=== PATIENT | female | born 1995 | race Caucasian/White ===

== ENCOUNTER 2016-04-11 14:59 | Emergency (ER) | payer OTHER ==
--- NOTE | 2016-04-11 18:01 | DIAGNOSTIC IMAGING REPORT ---
PROCEDURE: US OB 1ST TRIMESTER W/TRANSVAG INDICATION: Abnormal bleeding. HCG level 449. TECHNIQUE: Henderson scale, color, and spectral Doppler transabdominal and endovaginal sonographic images of the first trimester gravid uterus were obtained. COMPARISON: None. FINDINGS: TRANSABDOMINAL SCANS: The uterus appears normal. Kidneys are normal. TRANSVAGINAL SCANS: There is moderate increased endometrial thickness (17 mm). There is no evidence of intrauterine gestational sac. Right ovary is of normal size (3.5 cm) with a 1.3 cm cyst containing proteinaceous material. Left ovary is normal (3.9 cm). No evidence of free fluid. IMPRESSION: 1. Moderate increase endometrial thickness (17 mm). 2. In view of the patient's elevated hCG level, the overall appearance is most compatible with miscarriage in progress. An early undeveloped intrauterine is less likely, although still a consideration. Ectopic is less likely. Correlation with hCG levels and/or repeat obstetrical ultrasound in 7-10 days may be of assistance. 3. Findings discussed with PAC. Evonne
--- NOTE | 2016-04-11 18:05 | ED CLINICAL REPORT ---
Clinical Report - Physicians/Mid Levels [facility] [address] [place] [address] 04/11/2016 15:00 Patient: NATHANIEL HILTON Time Seen: 16:24 Apr 11 2016. Arrived- By private vehicle. Historian- patient. HISTORY OF PRESENT ILLNESS Chief Complaint: PELVIC PAIN. 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 The symptoms are described as mild. No vaginal pain, low back pain, pain with urination or urinary frequency. (, Last period January 29, reports spotting very away over the last 5 days, however heavier spotting over the last 36 hours, with blood clots. Reports abdominal cramping associated with spotting. Denies fevers. Denies any back pain.). REVIEW OF SYSTEMS No vomiting, diarrhea, chest pain or enlarged lymph nodes. All systems otherwise negative, except as recorded above. PAST HISTORY Problems: OB History. Allergic Reaction. . UTI - Urinary Tract Infection. Vomiting. Gastritis. Anxiety Reaction. Headache. Immunizations. LNMP - Last Normal Menstrual Period. Additional Surgeries: no known surgeries. Medications: None. Allergies: Amoxicillin. Augmentin. SOCIAL HISTORY Never smoker. No alcohol use or drug use. ADDITIONAL NOTES The nursing notes have been reviewed. PHYSICAL EXAM Vital Signs: 04/11/2016 16:14 BP: 123/73. HR: 93. RR: 16. O2 saturation: 100%. Temp: 98.0 F. Appearance: Alert. HEENT: Normal external inspection. ENT: Pharynx normal. Neck: Neck supple. CVS: Heart sounds normal. Respiratory: No respiratory distress. Breath sounds normal. Chest nontender. No rales or wheezes. Abdomen: Soft and nontender. Bowel sounds normal. No abdominal tenderness or rebound tenderness. : Speculum and bimanual exam performed. External inspection normal. Speculum exam normal. Moderate vaginal bleeding with clots, via the cervical os. No cervical dilation. Bimanual exam normal. No tenderness present on bimanual exam. Skin: Skin warm. Normal skin color. LABS, X-RAYS, AND EKG Pelvic Sonogram: IMPRESSION: 1. Moderate increase endometrial thickness (17 mm). 2. In view of the patient's elevated hCG level, the overall appearance is most compatible with miscarriage in progress. An early undeveloped intrauterine is less likely, although still a consideration. Ectopic is less likely. Correlation with hCG levels and/or repeat obstetrical ultrasound in 7-10 days may be of assistance. 3. Findings discussed with ALETA Douglass. Electronically Final signed by:Brett Milton MD 04/11/2016 5:58:19 PM. Laboratory Tests: CBC w Diff: (LUNA: 04/11/2016 16:25) ( [facility] [place] 16:43) Final results Test Result Flag Units (Reference) WHITE BLOOD COUNT 12.4 H K/uL (4.5-11.5) RED BLOOD COUNT 5.23 H M/uL (4.00-5.20) HEMOGLOBIN 13.8 gm/dL (12.0-16.0) HEMATOCRIT 43.1 % (36.0-46.0) MEAN CELL VOLUME 82 fL (80-100) MEAN CORPUSCULAR HGB 26 pg (26-34) MEAN CORPUSCULAR HGB CONC 32 g/dL (31-37) RED CELL DISTRIBUTION WIDTH 13.8 % (11.6-14.8) PLATELET COUNT 321 K/uL (150-400) LYMPH % 17.1 L % (25-40) MONO % 4.0 % (3-14) GRANULOCYTE % 78.9 (53-90) CMP: (LUNA: 04/11/2016 16:25) ( MsgRcvd 04/11/2016 17:05) Final results Test Result Flag Units (Reference) GLUCOSE 91 mg/dL (70-110) BUN 13 mg/dL (7-18) CREATININE 0.7 mg/dL (0.6-1.3) Estimated GFR >60 mL/min Estimated GFR- >60 mL/min Note: Persistent reduction over 3 months in eGFR<60 mL/min/1.73 m2 defines CKD. Patients with eGFR values>=60 mL/min/1.73 m2 may also have CKD if evidence ofpersistent proteinuria. Additional information may be foundat www.kidney.org. SODIUM 140 mmol/L (136-145) POTASSIUM 3.9 mmol/L (3.5-5.1) CHLORIDE 106 mmol/L (98-107) CARBON DIOXIDE 26 mmol/L (21-32) CALCIUM 8.8 mg/dL (8.5-10.1) TOTAL PROTEIN 8.1 g/dL (6.4-8.2) ALBUMIN 4.2 g/dL (3.3-5.0) BILIRUBIN, TOTAL 1.3 H mg/dL (0.0-1.0) ALKALINE PHOSPHATASE 87 U/L (46-116) AST (SGOT) 11 L U/L (15-37) ALT (SGPT) 27 U/L (12-78) BETA HCG, QUANTITATIVE 449 mIU/mL REFERENCE RANGE:Adult Males: <2 mIU/mLNon- Females: <6 mIU/mL Females:Approximate Approximate hCGGestational Age Range (mIU/mL) 0-1 week 0-501-2 weeks 40-3002-3 weeks 100-39112-9 weeks 500-91054-0 months 5,000-200,0002-3 months 10,000-100,0002nd trimester 3,000-50,0003rd trimester 1,000-50,000 Type & Rh: (LUNA: 04/11/2016 16:25) ( MsgRcvd 04/11/2016 17:03) Final results Test Result Flag Units (Reference) PATIENT BLOOD TYPE A Positive . PROGRESS AND PROCEDURES Course of Care: pt with signs/ sx Most consistent with incomplete miscarriage. Patient with very low hCG, despite by dates should be around 8 weeks , and the hCG is expected to be higher, in addition ultrasound with no sign of on us. 04/11/2016 18:14 BP: 128/53. HR: 97. RR: 18. O2 saturation: 100%. Temp: 98.3 F. Pain level now: 05/10. Patient is stable. Physical exam findings are improved. Symptoms better. Patient/family counseled. Disposition: Discharged. CLINICAL IMPRESSION Incomplete spontaneous (miscarriage). Positive test in the emergency department. INSTRUCTIONS Rest. Drink plenty of fluids. (repeat HCG in 3-4 days okay hydrate plenty). Warnings: Further evaluation is necessary. Prescription Medications: Hydrocodone/APAP 5mg / 325mg: take 1 orally every 6 hours as needed for pain. Dispense twelve (12). No refill. Follow-up: Follow up with your doctor. (Electronically signed by Annamarie Mahan P.A.-C 04/11/2016 18:31)
--- NOTE | 2016-04-11 18:05 | ED NURSING NOTES ---
Clinical Report - Nurses [facility] [address] [place] [address] 04/11/2016 15:00 Patient: NATHANIEL HILTON TRIAGE Triage time 16:07. Acuity: LEVEL 3. Chief Complaint: SPOTTING and VAGINAL BLEEDING and ABDOMINAL CRAMPS, LOW BACK PAIN and PASSING TISSUE. 16:14 04/11/16. Alert. No acute distress. --16:14 Helga Ambriz R.N. 16:14 04/11/16. BP: 123/73. HR: 93. RR: 16. O2 saturation: 100%. Temp: 98.0 F. Pain level now 8/10. --16:14 Helga Ambriz R.N. Weight: 81.6 kg stated. Height/Length: 61 inches Per Patient. BMI: 34. --16:14 Helga Ambriz R.N. Medications None. --16:13 Helga Ambriz R.N. Medication/allergy information source: the patient. --16:14 Helga Ambriz R.N. Allergies Amoxicillin. Augmentin. --16:13 Helga Ambriz R.N. History Historian: patient. Primary physician (fernando). ( spotting x 5 days, states she began having heavier bleeding yesterday and passed clots and tissue yesterday. C/O cramping. Additionally, she is 5 months post ). Onset. (5 days ago). 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 PAST MEDICAL HX: Last normal menstrual period- feb 14. Currently . OB history: G 3; P 2. SOCIAL HX: Never smoker. No alcohol use or drug use. FALL RISK ASSESSMENT: Fall risk assessment completed. No fall risk identified. NUTRITIONAL RISK ASSESSMENT: The nutritional risk assessment revealed no deficiencies. FUNCTIONAL ASSESSMENT: Functional assessment: no impairments noted. LEARNING NEEDS ASSESSMENT: The learning needs assessment revealed no barriers. SKIN INTEGRITY ASSESSMENT: Skin integrity risk assessment completed. No skin integrity risk identified. --16:14 Helga Ambriz R.N. PROBLEMS: Allergic Reaction. UTI - Urinary Tract Infection. Vomiting. Gastritis. Anxiety Reaction. Headache. --16:14 Helga Ambriz R.N. ADDITIONAL SURGERIES: no known surgeries. Interventions ID band on patient. To treatment room. --16:14 Helga Ambriz R.N. PHYSICAL ASSESSMENT 16:18 04/11/16. GENERAL / NEURO / PSYCH: Alert. Oriented X 4. Appears in no acute distress. --16:18 Carolyn Aggarwal R.N. NURSING PROGRESS NOTES 16:18 04/11/16. Head of bed elevated. Patient identifiers checked. Call light placed in reach. Bed placed in lowest position. Patient ready for evaluation- chart flagged. --16:18 Carolyn Aggarwal R.N. DISPOSITION / DISCHARGE Departure time: 1813. Condition at departure: unchanged. No learning barriers present. Discharge instructions provided and reviewed with the patient and family. Reviewed medication(s) information. Prescription(s) given to the patient. Reviewed referral to family practice. Verbalized understanding. Written instructions provided. The patient was discharged home and accompanied by family. She left the Emergency Department ambulatory and via private vehicle. --18:16 Carolyn Aggarwal R.N. 18:14 04/11/16. BP: 128/53. HR: 97. RR: 18. O2 saturation: 100%. Temp: 98.3 F. Pain level now: 05/10. --18:16 Carolyn Aggarwal R.N. Locked/Released at 04/11/2016 19:14 by Carolyn Aggarwal R.N.
--- NOTE | 2016-04-11 18:05 | ED ORDER SUMMARY ---
..... Patient: NATHANIEL HILTON OrderSheet [facility] VisitID: [id number] [address] [place] [address] 20y, F Registration Date/Time: 04/11/2016 ORDER SHEET Weight: 81.6 kg (stated) Allergies: Amoxicillin, Augmentin GENERAL ORDERS: US OB 1st Trimester w Transvag (jan 29) Urgent (16:12 04/11/2016 EKoroleva P.A.-C) (Ack 16:15 TBergley) (19:13 LSullivan R.N.) CBC w Diff Urgent (16:12 04/11/2016 EKoroleva P.A.-C) (Ack 16:15 TBergley) (17:28 TBergley) CMP Urgent (16:12 04/11/2016 EKoroleva P.A.-C) (Ack 16:15 TBergley) (17:28 TBergley) Serum Quantitative Urgent (16:12 04/11/2016 EKoroleva P.A.-C) (Ack 16:15 TBergley) (17:28 TBergley) Type & Rh Urgent (16:12 04/11/2016 EKoroleva P.A.-C) (Ack 16:15 TBergley) (17:28 TBergley) Pelvic Exam Setup (16:35 04/11/2016 EKoroleva P.A.-C) (Ack 17:25 TBergley) (17:28 TBergley) Vitals (17:58 04/11/2016 EKoroleva P.A.-C) (Ack 18:30 TBergley) (19:13 LSullivan R.N.) MEDICATION ORDERS: Hydrocodone-APAP PO 5/325 mg (NOW, HIGH ALERT MEDICATION) (17:58 04/11/2016 EKoroleva P.A.-C) (Cancelled: Patient Left19:13 LSullivan R.N.) IV FLUIDS: ORDER SHEET NOTES: [Electronically signed by Annamarie Mahan PMauricioAMauricio-Gigi (18:31 04/11/2016)] [Electronically signed by Carolyn Aggarwal R.N. (19:14 04/11/2016)] [Electronically locked/signed by Carolyn Aggarwal R.N. (19:14 04/11/2016)]
--- NOTE | 2016-04-11 18:05 | ED NURSING NOTES ---
Clinical Report - Nurses [facility] [address] [place] [address] 04/11/2016 15:00 Patient: NATHANIEL HILTON TRIAGE Triage time 16:07. Acuity: LEVEL 3. Chief Complaint: SPOTTING and VAGINAL BLEEDING and ABDOMINAL CRAMPS, LOW BACK PAIN and PASSING TISSUE. 16:14 04/11/16. Alert. No acute distress. --16:14 Helga Ambriz R.N. 16:14 04/11/16. BP: 123/73. HR: 93. RR: 16. O2 saturation: 100%. Temp: 98.0 F. Pain level now 8/10. --16:14 Helga Ambriz R.N. Weight: 81.6 kg stated. Height/Length: 61 inches Per Patient. BMI: 34. --16:14 Helga Ambriz R.N. Medications None. --16:13 Helga Ambriz R.N. Medication/allergy information source: the patient. --16:14 Helga Ambriz R.N. Allergies Amoxicillin. Augmentin. --16:13 Helga Ambriz R.N. History Historian: patient. Primary physician (fernando). ( spotting x 5 days, states she began having heavier bleeding yesterday and passed clots and tissue yesterday. C/O cramping. Additionally, she is 5 months post ). Onset. (5 days ago). 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 PAST MEDICAL HX: Last normal menstrual period- feb 14. Currently . OB history: G 3; P 2. SOCIAL HX: Never smoker. No alcohol use or drug use. FALL RISK ASSESSMENT: Fall risk assessment completed. No fall risk identified. NUTRITIONAL RISK ASSESSMENT: The nutritional risk assessment revealed no deficiencies. FUNCTIONAL ASSESSMENT: Functional assessment: no impairments noted. LEARNING NEEDS ASSESSMENT: The learning needs assessment revealed no barriers. SKIN INTEGRITY ASSESSMENT: Skin integrity risk assessment completed. No skin integrity risk identified. --16:14 Helga Ambriz R.N. PROBLEMS: Allergic Reaction. UTI - Urinary Tract Infection. Vomiting. Gastritis. Anxiety Reaction. Headache. --16:14 Helga Ambriz R.N. ADDITIONAL SURGERIES: no known surgeries. Interventions ID band on patient. To treatment room. --16:14 Helga Ambriz R.N. PHYSICAL ASSESSMENT 16:18 04/11/16. GENERAL / NEURO / PSYCH: Alert. Oriented X 4. Appears in no acute distress. --16:18 Carolyn Aggarwal R.N. NURSING PROGRESS NOTES 16:18 04/11/16. Head of bed elevated. Patient identifiers checked. Call light placed in reach. Bed placed in lowest position. Patient ready for evaluation- chart flagged. --16:18 Carolyn Aggarwal R.N. DISPOSITION / DISCHARGE Departure time: 1813. Condition at departure: unchanged. No learning barriers present. Discharge instructions provided and reviewed with the patient and family. Reviewed medication(s) information. Prescription(s) given to the patient. Reviewed referral to family practice. Verbalized understanding. Written instructions provided. The patient was discharged home and accompanied by family. She left the Emergency Department ambulatory and via private vehicle. --18:16 Carolyn Aggarwal R.N. 18:14 04/11/16. BP: 128/53. HR: 97. RR: 18. O2 saturation: 100%. Temp: 98.3 F. Pain level now: 05/10. --18:16 Carolyn Aggarwal R.N. Locked/Released at 04/11/2016 19:14 by Carolyn Aggarwal R.N.
--- NOTE | 2016-04-11 18:05 | ED ORDER SUMMARY ---
..... Patient: NATHANIEL HILTON OrderSheet [facility] VisitID: [id number] [address] [place] [address] 20y, F Registration Date/Time: 04/11/2016 ORDER SHEET Weight: 81.6 kg (stated) Allergies: Amoxicillin, Augmentin GENERAL ORDERS: US OB 1st Trimester w Transvag (jan 29) Urgent (16:12 04/11/2016 EKoroleva P.A.-C) (Ack 16:15 TBergley) (19:13 LSullivan R.N.) CBC w Diff Urgent (16:12 04/11/2016 EKoroleva P.A.-C) (Ack 16:15 TBergley) (17:28 TBergley) CMP Urgent (16:12 04/11/2016 EKoroleva P.A.-C) (Ack 16:15 TBergley) (17:28 TBergley) Serum Quantitative Urgent (16:12 04/11/2016 EKoroleva P.A.-C) (Ack 16:15 TBergley) (17:28 TBergley) Type & Rh Urgent (16:12 04/11/2016 EKoroleva P.A.-C) (Ack 16:15 TBergley) (17:28 TBergley) Pelvic Exam Setup (16:35 04/11/2016 EKoroleva P.A.-C) (Ack 17:25 TBergley) (17:28 TBergley) Vitals (17:58 04/11/2016 EKoroleva P.A.-C) (Ack 18:30 TBergley) (19:13 LSullivan R.N.) MEDICATION ORDERS: Hydrocodone-APAP PO 5/325 mg (NOW, HIGH ALERT MEDICATION) (17:58 04/11/2016 EKoroleva P.A.-C) (Cancelled: Patient Left19:13 LSullivan R.N.) IV FLUIDS: ORDER SHEET NOTES: [Electronically signed by Annamarie Mahan PMauricioAMauricio-Gigi (18:31 04/11/2016)] [Electronically signed by Carolyn Aggarwal R.N. (19:14 04/11/2016)] [Electronically locked/signed by Carolyn Aggarwal R.N. (19:14 04/11/2016)]
--- NOTE | 2016-04-11 18:05 | ED CLINICAL REPORT ---
Clinical Report - Physicians/Mid Levels [facility] [address] [place] [address] 04/11/2016 15:00 Patient: NATHANIEL HILTON Time Seen: 16:24 Apr 11 2016. Arrived- By private vehicle. Historian- patient. HISTORY OF PRESENT ILLNESS Chief Complaint: PELVIC PAIN. 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 The symptoms are described as mild. No vaginal pain, low back pain, pain with urination or urinary frequency. (, Last period January 29, reports spotting very away over the last 5 days, however heavier spotting over the last 36 hours, with blood clots. Reports abdominal cramping associated with spotting. Denies fevers. Denies any back pain.). REVIEW OF SYSTEMS No vomiting, diarrhea, chest pain or enlarged lymph nodes. All systems otherwise negative, except as recorded above. PAST HISTORY Problems: OB History. Allergic Reaction. . UTI - Urinary Tract Infection. Vomiting. Gastritis. Anxiety Reaction. Headache. Immunizations. LNMP - Last Normal Menstrual Period. Additional Surgeries: no known surgeries. Medications: None. Allergies: Amoxicillin. Augmentin. SOCIAL HISTORY Never smoker. No alcohol use or drug use. ADDITIONAL NOTES The nursing notes have been reviewed. PHYSICAL EXAM Vital Signs: 04/11/2016 16:14 BP: 123/73. HR: 93. RR: 16. O2 saturation: 100%. Temp: 98.0 F. Appearance: Alert. HEENT: Normal external inspection. ENT: Pharynx normal. Neck: Neck supple. CVS: Heart sounds normal. Respiratory: No respiratory distress. Breath sounds normal. Chest nontender. No rales or wheezes. Abdomen: Soft and nontender. Bowel sounds normal. No abdominal tenderness or rebound tenderness. : Speculum and bimanual exam performed. External inspection normal. Speculum exam normal. Moderate vaginal bleeding with clots, via the cervical os. No cervical dilation. Bimanual exam normal. No tenderness present on bimanual exam. Skin: Skin warm. Normal skin color. LABS, X-RAYS, AND EKG Pelvic Sonogram: IMPRESSION: 1. Moderate increase endometrial thickness (17 mm). 2. In view of the patient's elevated hCG level, the overall appearance is most compatible with miscarriage in progress. An early undeveloped intrauterine is less likely, although still a consideration. Ectopic is less likely. Correlation with hCG levels and/or repeat obstetrical ultrasound in 7-10 days may be of assistance. 3. Findings discussed with ALETA Douglass. Electronically Final signed by:Brett Milton MD 04/11/2016 5:58:19 PM. Laboratory Tests: CBC w Diff: (LUNA: 04/11/2016 16:25) ( [facility] [place] 16:43) Final results Test Result Flag Units (Reference) WHITE BLOOD COUNT 12.4 H K/uL (4.5-11.5) RED BLOOD COUNT 5.23 H M/uL (4.00-5.20) HEMOGLOBIN 13.8 gm/dL (12.0-16.0) HEMATOCRIT 43.1 % (36.0-46.0) MEAN CELL VOLUME 82 fL (80-100) MEAN CORPUSCULAR HGB 26 pg (26-34) MEAN CORPUSCULAR HGB CONC 32 g/dL (31-37) RED CELL DISTRIBUTION WIDTH 13.8 % (11.6-14.8) PLATELET COUNT 321 K/uL (150-400) LYMPH % 17.1 L % (25-40) MONO % 4.0 % (3-14) GRANULOCYTE % 78.9 (53-90) CMP: (LUNA: 04/11/2016 16:25) ( MsgRcvd 04/11/2016 17:05) Final results Test Result Flag Units (Reference) GLUCOSE 91 mg/dL (70-110) BUN 13 mg/dL (7-18) CREATININE 0.7 mg/dL (0.6-1.3) Estimated GFR >60 mL/min Estimated GFR- >60 mL/min Note: Persistent reduction over 3 months in eGFR<60 mL/min/1.73 m2 defines CKD. Patients with eGFR values>=60 mL/min/1.73 m2 may also have CKD if evidence ofpersistent proteinuria. Additional information may be foundat www.kidney.org. SODIUM 140 mmol/L (136-145) POTASSIUM 3.9 mmol/L (3.5-5.1) CHLORIDE 106 mmol/L (98-107) CARBON DIOXIDE 26 mmol/L (21-32) CALCIUM 8.8 mg/dL (8.5-10.1) TOTAL PROTEIN 8.1 g/dL (6.4-8.2) ALBUMIN 4.2 g/dL (3.3-5.0) BILIRUBIN, TOTAL 1.3 H mg/dL (0.0-1.0) ALKALINE PHOSPHATASE 87 U/L (46-116) AST (SGOT) 11 L U/L (15-37) ALT (SGPT) 27 U/L (12-78) BETA HCG, QUANTITATIVE 449 mIU/mL REFERENCE RANGE:Adult Males: <2 mIU/mLNon- Females: <6 mIU/mL Females:Approximate Approximate hCGGestational Age Range (mIU/mL) 0-1 week 0-501-2 weeks 40-3002-3 weeks 100-82329-8 weeks 500-81015-3 months 5,000-200,0002-3 months 10,000-100,0002nd trimester 3,000-50,0003rd trimester 1,000-50,000 Type & Rh: (LUNA: 04/11/2016 16:25) ( MsgRcvd 04/11/2016 17:03) Final results Test Result Flag Units (Reference) PATIENT BLOOD TYPE A Positive . PROGRESS AND PROCEDURES Course of Care: pt with signs/ sx Most consistent with incomplete miscarriage. Patient with very low hCG, despite by dates should be around 8 weeks , and the hCG is expected to be higher, in addition ultrasound with no sign of on us. 04/11/2016 18:14 BP: 128/53. HR: 97. RR: 18. O2 saturation: 100%. Temp: 98.3 F. Pain level now: 05/10. Patient is stable. Physical exam findings are improved. Symptoms better. Patient/family counseled. Disposition: Discharged. CLINICAL IMPRESSION Incomplete spontaneous (miscarriage). Positive test in the emergency department. INSTRUCTIONS Rest. Drink plenty of fluids. (repeat HCG in 3-4 days okay hydrate plenty). Warnings: Further evaluation is necessary. Prescription Medications: Hydrocodone/APAP 5mg / 325mg: take 1 orally every 6 hours as needed for pain. Dispense twelve (12). No refill. Follow-up: Follow up with your doctor. (Electronically signed by Annamarie Mahan P.A.-C 04/11/2016 18:31)
--- NOTE | 2016-04-11 19:14 | ED MAR SUMMARY ---
..... Medication Administration Record [facility] [address] [place], [place] [id number] Patient: NATHANIEL HILTON Visit ID: [id number] 20y, F Weight: 81.6 kg Height/Length: 61 in BMI: 34 ALLERGIES: Amoxicillin, Augmentin
--- NOTE | 2016-04-11 19:14 | ED MED RECONCILIATION SUMMARY ---
Patient: NATHANIEL HILTON Medication Reconciliation Report [facility] VisitID: [id number] [address] [place] [address] 20y, F Registration Date/Time: 04/11/2016 Weight: 81.6 kg Height/Length: 61 in. BMI: 34.0 ALLERGIES: Amoxicillin, Augmentin The patient's Home Medications are listed below: NONE. The source(s) of the original Home Medication information: patient The following Medications were given to the patient in the Emergency Department: None. The following Medications were prescribed to the patient: Hydrocodone/APAP 5mg / 325mg: take 1 orally every 6 hours as needed for pain. Dispense twelve (12). No refill. -- Annamarie Mahan PMauricioATiC
--- NOTE | 2016-04-11 19:14 | ED DISCHARGE INSTRUCTIONS ---
Patient: NATHANIEL HILTON General Instructions [facility] VisitID: [id number] [place] [address] 20y, F Registration Date/Time: 04/11/2016 Incomplete spontaneous (miscarriage). Positive test in the emergency department. INSTRUCTIONS Rest. Drink plenty of fluids. (repeat HCG in 3-4 days okay hydrate plenty). Warnings: Further evaluation is necessary. Prescription Medications: Hydrocodone/APAP 5mg / 325mg: take 1 orally every 6 hours as needed for pain. Dispense twelve (12). No refill. Follow-up: Follow up with your doctor. ADDITIONAL INFORMATION Miscarriage, Spontaneous (Completed) Todays exam shows that your has ended suddenly. While this may be an emotionally difficult time for you, know that it is not an uncommon event. A miscarriage can be due to various causes. These include a problem with the babys chromosomes (genes that carry the information needed for life) or with fertilization or implantation that didnt happen correctly. In most cases no cause can be found. Be assured that this miscarriage was not the result of anything that you did wrong, and it will not interfere with your ability to become in the future. It appears that your miscarriage is complete and all tissue from the has passed. If there are parts of the tissue that remain in the uterus, you will probably have more cramping and bleeding. Home Care: You may resume normal activities if you are not having heavy bleeding or pain. Until the bleeding stops completely and to prevent infection: Do not have sexual intercourse for as long as your healthcare provider tells you. Use sanitary pads instead of tampons. Do not douche. If you feel sadness or grief, it may help to talk about your feelings with family and friends, or with a counselor. Follow Up: Make an appointment to see your doctor in the next one to two weeks for a checkup. If cramping and bleeding return and continue for more than a few days, call your doctor or return here for an exam. The doctor may need to remove remaining tissue from the uterus to stop the bleeding and prevent infection. Or, you may be prescribed medication to take at home to help your body expel the remaining tissue. Note: If you had an ultrasound it will be reviewed by a specialist. You will be notified of any new findings that may affect your care. Get Prompt Medical Attention if any of the following occur: Heavy bleeding (soaking one new pad an hour over three hours) Bleeding that does not stop after ten days Foul-smelling vaginal discharge Fever of 100.4F (38C) or higher, or as directed by your healthcare provider Increasing lower abdominal pain Weakness, dizziness, or fainting Hydrocodone Bitartrate, Acetaminophen Oral tablet What is this medicine? ACETAMINOPHEN; HYDROCODONE (a set a DARIUSZ saranya fen; rachele droe KOE done) is a pain reliever. It is used to treat mild to moderate pain. How should I use this medicine? Take this medicine by mouth. Swallow it with a full glass of water. Follow the directions on the prescription label. If the medicine upsets your stomach, take the medicine with food or milk. Do not take more than you are told to take. Talk to your geomorphologist regarding the use of this medicine in children. This medicine is not approved for use in children. What side effects may I notice from receiving this medicine? Side effects that you should report to your doctor or health auto care center manager as soon as possible: allergic reactions like skin rash, itching or hives, swelling of the face, lips, or tongue breathing problems confusion feeling faint or lightheaded, falls stomach pain yellowing of the eyes or skin Side effects that usually do not require medical attention (report to your doctor or health auto care center manager if they continue or are bothersome): nausea, vomiting stomach upset What may interact with this medicine? alcohol antihistamines isoniazid medicines for depression, anxiety, or psychotic disturbances medicines for sleep muscle relaxants naltrexone narcotic medicines (opiates) for pain phenobarbital ritonavir tramadol What if I miss a dose? If you miss a dose, take it as soon as you can. If it is almost time for your next dose, take only that dose. Do not take double or extra doses. Where should I keep my medicine? Keep out of the reach of children. This medicine can be abused. Keep your medicine in a safe place to protect it from theft. Do not share this medicine with anyone. Selling or giving away this medicine is dangerous and against the law. Store at room temperature between 15 and 30 degrees C (59 and 86 degrees F). Protect from light. Keep container tightly closed. Throw away any unused medicine after the expiration date. Discard unused medicine and used packaging carefully. Pets and children can be harmed if they find used or lost packages. What should I tell my health care provider before I take this medicine? They need to know if you have any of these conditions: brain tumor Crohn's disease, inflammatory bowel disease, or ulcerative colitis drink more than 3 alcohol-containing drinks per day drug abuse or addiction head injury heart or circulation problems kidney disease or problems going to the bathroom liver disease lung disease, asthma, or breathing problems an unusual or allergic reaction to acetaminophen, hydrocodone, other opioid analgesics, other medicines, foods, dyes, or preservatives or trying to get breast-feeding What should I watch for while using this medicine? Tell your doctor or health auto care center manager if your pain does not go away, if it gets worse, or if you have new or a different type of pain. You may develop tolerance to the medicine. Tolerance means that you will need a higher dose of the medicine for pain relief. Tolerance is normal and is expected if you take the medicine for a long time. Do not suddenly stop taking your medicine because you may develop a severe reaction. Your body becomes used to the medicine. This does NOT mean you are addicted. Addiction is a behavior related to getting and using a drug for a non-medical reason. If you have pain, you have a medical reason to take pain medicine. Your doctor will tell you how much medicine to take. If your doctor wants you to stop the medicine, the dose will be slowly lowered over time to avoid any side effects. You may get drowsy or dizzy when you first start taking the medicine or change doses. Do not drive, use machinery, or do anything that may be dangerous until you know how the medicine affects you. Stand or sit up slowly. There are different types of narcotic medicines (opiates) for pain. If you take more than one type at the same time, you may have more side effects. Give your health care provider a list of all medicines you use. Your doctor will tell you how much medicine to take. Do not take more medicine than directed. Call emergency for help if you have problems breathing. The medicine will cause constipation. Try to have a bowel movement at least every 2 to 3 days. If you do not have a bowel movement for 3 days, call your doctor or health auto care center manager. Too much acetaminophen can be very dangerous. Do not take Tylenol (acetaminophen) or medicines that contain acetaminophen with this medicine. Many non-prescription medicines contain acetaminophen. Always read the labels carefully. You have been given the following additional information: Miscarriage, Spontaneous (Completed) Hydrocodone Bitartrate, Acetaminophen Oral tablet Rest. (Electronically signed by Annamarie Mahan P.A.-C 04/11/2016 18:31)
--- NOTE | 2016-04-11 19:14 | ED DISCHARGE INSTRUCTIONS ---
Patient: NATHANIEL HILTON General Instructions [facility] VisitID: [id number] [place] [address] 20y, F Registration Date/Time: 04/11/2016 Incomplete spontaneous (miscarriage). Positive test in the emergency department. INSTRUCTIONS Rest. Drink plenty of fluids. (repeat HCG in 3-4 days okay hydrate plenty). Warnings: Further evaluation is necessary. Prescription Medications: Hydrocodone/APAP 5mg / 325mg: take 1 orally every 6 hours as needed for pain. Dispense twelve (12). No refill. Follow-up: Follow up with your doctor. ADDITIONAL INFORMATION Miscarriage, Spontaneous (Completed) Todays exam shows that your has ended suddenly. While this may be an emotionally difficult time for you, know that it is not an uncommon event. A miscarriage can be due to various causes. These include a problem with the babys chromosomes (genes that carry the information needed for life) or with fertilization or implantation that didnt happen correctly. In most cases no cause can be found. Be assured that this miscarriage was not the result of anything that you did wrong, and it will not interfere with your ability to become in the future. It appears that your miscarriage is complete and all tissue from the has passed. If there are parts of the tissue that remain in the uterus, you will probably have more cramping and bleeding. Home Care: You may resume normal activities if you are not having heavy bleeding or pain. Until the bleeding stops completely and to prevent infection: Do not have sexual intercourse for as long as your healthcare provider tells you. Use sanitary pads instead of tampons. Do not douche. If you feel sadness or grief, it may help to talk about your feelings with family and friends, or with a counselor. Follow Up: Make an appointment to see your doctor in the next one to two weeks for a checkup. If cramping and bleeding return and continue for more than a few days, call your doctor or return here for an exam. The doctor may need to remove remaining tissue from the uterus to stop the bleeding and prevent infection. Or, you may be prescribed medication to take at home to help your body expel the remaining tissue. Note: If you had an ultrasound it will be reviewed by a specialist. You will be notified of any new findings that may affect your care. Get Prompt Medical Attention if any of the following occur: Heavy bleeding (soaking one new pad an hour over three hours) Bleeding that does not stop after ten days Foul-smelling vaginal discharge Fever of 100.4F (38C) or higher, or as directed by your healthcare provider Increasing lower abdominal pain Weakness, dizziness, or fainting Hydrocodone Bitartrate, Acetaminophen Oral tablet What is this medicine? ACETAMINOPHEN; HYDROCODONE (a set a DARIUSZ saranya fen; rachele droe KOE done) is a pain reliever. It is used to treat mild to moderate pain. How should I use this medicine? Take this medicine by mouth. Swallow it with a full glass of water. Follow the directions on the prescription label. If the medicine upsets your stomach, take the medicine with food or milk. Do not take more than you are told to take. Talk to your bridge club manager regarding the use of this medicine in children. This medicine is not approved for use in children. What side effects may I notice from receiving this medicine? Side effects that you should report to your doctor or health wound care rn as soon as possible: allergic reactions like skin rash, itching or hives, swelling of the face, lips, or tongue breathing problems confusion feeling faint or lightheaded, falls stomach pain yellowing of the eyes or skin Side effects that usually do not require medical attention (report to your doctor or health wound care rn if they continue or are bothersome): nausea, vomiting stomach upset What may interact with this medicine? alcohol antihistamines isoniazid medicines for depression, anxiety, or psychotic disturbances medicines for sleep muscle relaxants naltrexone narcotic medicines (opiates) for pain phenobarbital ritonavir tramadol What if I miss a dose? If you miss a dose, take it as soon as you can. If it is almost time for your next dose, take only that dose. Do not take double or extra doses. Where should I keep my medicine? Keep out of the reach of children. This medicine can be abused. Keep your medicine in a safe place to protect it from theft. Do not share this medicine with anyone. Selling or giving away this medicine is dangerous and against the law. Store at room temperature between 15 and 30 degrees C (59 and 86 degrees F). Protect from light. Keep container tightly closed. Throw away any unused medicine after the expiration date. Discard unused medicine and used packaging carefully. Pets and children can be harmed if they find used or lost packages. What should I tell my health care provider before I take this medicine? They need to know if you have any of these conditions: brain tumor Crohn's disease, inflammatory bowel disease, or ulcerative colitis drink more than 3 alcohol-containing drinks per day drug abuse or addiction head injury heart or circulation problems kidney disease or problems going to the bathroom liver disease lung disease, asthma, or breathing problems an unusual or allergic reaction to acetaminophen, hydrocodone, other opioid analgesics, other medicines, foods, dyes, or preservatives or trying to get breast-feeding What should I watch for while using this medicine? Tell your doctor or health wound care rn if your pain does not go away, if it gets worse, or if you have new or a different type of pain. You may develop tolerance to the medicine. Tolerance means that you will need a higher dose of the medicine for pain relief. Tolerance is normal and is expected if you take the medicine for a long time. Do not suddenly stop taking your medicine because you may develop a severe reaction. Your body becomes used to the medicine. This does NOT mean you are addicted. Addiction is a behavior related to getting and using a drug for a non-medical reason. If you have pain, you have a medical reason to take pain medicine. Your doctor will tell you how much medicine to take. If your doctor wants you to stop the medicine, the dose will be slowly lowered over time to avoid any side effects. You may get drowsy or dizzy when you first start taking the medicine or change doses. Do not drive, use machinery, or do anything that may be dangerous until you know how the medicine affects you. Stand or sit up slowly. There are different types of narcotic medicines (opiates) for pain. If you take more than one type at the same time, you may have more side effects. Give your health care provider a list of all medicines you use. Your doctor will tell you how much medicine to take. Do not take more medicine than directed. Call emergency for help if you have problems breathing. The medicine will cause constipation. Try to have a bowel movement at least every 2 to 3 days. If you do not have a bowel movement for 3 days, call your doctor or health wound care rn. Too much acetaminophen can be very dangerous. Do not take Tylenol (acetaminophen) or medicines that contain acetaminophen with this medicine. Many non-prescription medicines contain acetaminophen. Always read the labels carefully. You have been given the following additional information: Miscarriage, Spontaneous (Completed) Hydrocodone Bitartrate, Acetaminophen Oral tablet Rest. (Electronically signed by Annamarie Mahan P.A.-C 04/11/2016 18:31)
--- NOTE | 2016-04-11 19:14 | ED MED RECONCILIATION SUMMARY ---
Patient: NATHANIEL HILTON Medication Reconciliation Report [facility] VisitID: [id number] [address] [place] [address] 20y, F Registration Date/Time: 04/11/2016 Weight: 81.6 kg Height/Length: 61 in. BMI: 34.0 ALLERGIES: Amoxicillin, Augmentin The patient's Home Medications are listed below: NONE. The source(s) of the original Home Medication information: patient The following Medications were given to the patient in the Emergency Department: None. The following Medications were prescribed to the patient: Hydrocodone/APAP 5mg / 325mg: take 1 orally every 6 hours as needed for pain. Dispense twelve (12). No refill. -- Annamarie Mahan PMauricoiATiC
--- NOTE | 2016-04-11 19:14 | ED MAR SUMMARY ---
..... Medication Administration Record [facility] [address] [place], [place] [id number] Patient: NATHANIEL HILTON Visit ID: [id number] 20y, F Weight: 81.6 kg Height/Length: 61 in BMI: 34 ALLERGIES: Amoxicillin, Augmentin
== END 2016-04-11 18:14 | disposition home or self-care (01) ==
LOC: ED SRH 14:59
DX: O03.4 Incomplete spontaneous abortion without complication (principal); Z88.0 Allergy status to penicillin; Z88.1 Allergy status to other antibiotic agents
CPT/HCPCS: 90001; 90100; 90155; 90197; 95059